=== PATIENT | male | born 2000 | race Caucasian/White ===

== ENCOUNTER 2019-07-15 15:06 | Emergency (ER) | payer BC ==
[~2019-07-15] VITALS: Ht 185.4 cm; Wt 100.0 kg
[2019-07-15 17:36] LABS: BASO % 0.4 % (0.0-2.0); EOS % 0.2 % (0-4.0); GRAN # 5.9 (1.4-6.5); GRAN % 69.7 % (42.2-75.2); HEMATOCRIT 43.4 % (36.0-47.0); HEMOGLOBIN 14.9 g/dl (12.5-16.1); LYMPH # 1.8 (1.2-3.4); LYMPH % 21.3 % (20.0-51.0); MEAN CELL VOLUME 87 fl (80.0-95.0); MEAN CORPUSCULAR HEMOGLOBIN 30 pg (26.0-32.0); MEAN CORPUSCULAR HGB CONC 34 g/dl (33.0-37.0); MEAN PLATELET VOLUME 9.9 fl (7.4-10.4); MONO # 0.7 (0.1-0.6); PLATELET COUNT 138 K/mm3 (130-400); RED BLOOD COUNT 4.98 M/mm3 (4.20-5.60); REDCELL DISTRIBUTION WIDTH-CV 11.5 % (11.5-14.5)
[2019-07-15 17:55] LABS: CALCIUM 9.6 mg/dL (8.4-10.2); CREATININE, serum 1.07 (0.66-1.25); POTASSIUM 3.8 mmol/L (3.4-5.0); STREP SCREEN NEGATIVE
[2019-07-15] MEDS ORDERED: DOXYCYCLINE HY100 MG PO (19:01)
[2019-07-15 19:08] VITALS: BP 124/63; PULSE 82; TEMP 99.2
== END 2019-07-15 19:20 | disposition home or self-care (01) ==
LOC: COL.ER 15:06
PROVIDERS: Physician Assistant
DX: J06.9 Acute upper respiratory infection, unspecified (principal)
CPT/HCPCS: J1885; J7030